=== PATIENT | male | born 1980 ===

== ENCOUNTER 2018-04-08 11:30 | Emergency (ER) | payer OTHER ==
[2018-04-08 11:55] VITALS: BP 131/86; PULSE 77; RESP 16; TEMP 98.4; O2SAT 99
[2018-04-08] MEDS ORDERED: DiphenhydrAMINE 50 mg/ml Inj IM STA (12:21)
--- NOTE | 2018-04-08 12:21 | ED PDOC ---
HPI: Skin/Bite Injury Time Seen by Provider: 04/08/18 12:10 Chief Complaint (Nursing): Abnormal Skin Integrity Chief Complaint (Provider): Rash History Per: Patient, [employer] ([place], #[id number]) History/Exam Limitations: no limitations Onset/Duration Of Symptoms: Days (x5) Current Symptoms Are (Timing): Still Present Additional Complaint(s): 37 year old male presents to the ED for evaluation of an itchy rash onset five days ago. Patient notes that it initially began as a few red spots on his abdomen, but has since spread exclusively to his entire back and abdomen. Denies fever and any recent new exposures. PMD: none provided Past Medical History Reviewed: Historical Data, Nursing Documentation, Vital Signs Vital Signs: Last Vital Signs Temp 98.4 F 04/08/18 11:53 Pulse 77 04/08/18 11:53 Resp 16 04/08/18 11:53 BP 131/86 04/08/18 11:53 Pulse Ox 99 04/08/18 11:53 - Medical History PMH: No Chronic Diseases - Surgical History Surgical History: No Surg Hx - Family History Family History: States: Unknown Family Hx - Home Medications Home Medications: Ambulatory Orders Medication Instructions Recorded Clotrimazole/Betamethasone 2 gm EXT BID #20 gm 04/08/18 [Lotrisone] - Allergies Allergies/Adverse Reactions: Allergies Allergy/AdvReac Type Severity Reaction Status Date / Time No Known Allergies Allergy Verified 04/08/18 11:52 Review of Systems ROS Statement: Except As Marked, All Systems Reviewed And Found Negative Constitutional: Negative for: Fever Skin: Positive for: Rash (itchy red spots to entire trunk) Physical Exam - Reviewed Nursing Documentation Reviewed: Yes Vital Signs Reviewed: Yes - Physical Exam Appears: Positive for: No Acute Distress Skin: Positive for: Warm, Dry, Rash (truncal anterior and posterior rash that is papular and mildly raised) Neck: Positive for: Normal Cardiovascular/Chest: Positive for: Regular Rate, Rhythm Respiratory: Positive for: Normal Breath Sounds. Negative for: Accessory Muscle Use, Crackles, Rales, Stridor, Wheezing, Respiratory Distress Pulses-Carotid (L): 2+ Pulses-Carotid (R): 2+ Pulses-Radial (L): 2+ Pulses-Radial (R): 2+ - ECG O2 Sat by Pulse Oximetry: 99 (RA) Pulse Ox Interpretation: Normal Medical Decision Making Medical Decision Making: Time: 1221 Initial Impression: fungal rash vs dermatitis Initial Plan: --Benadryl 50mg IM --Decadron Inj 10mg IM --Patient will be d/c with a sustain engineer referral and advised to follow up Scribe Attestation: Documented by Santa Whitten, acting as a scribe for Edin Hassan PA-C. Provider Scribe Attestation: All medical record entries made by the Scribe were at my direction and personally dictated by me. I have reviewed the chart and agree that the record accurately reflects my personal performance of the history, physical exam, medical decision making, and the department course for this patient. I have also personally directed, reviewed, and agree with the discharge instructions and disposition. Disposition - Clinical Impression Clinical Impression: Fungal rash of torso - Disposition Referrals: Ollie Guzman MD [Non-Staff] - [facility] [Outside] Disposition: Routine/Home Disposition Time: 12:40 Condition: STABLE Prescriptions: Clotrimazole/Betamethasone [Lotrisone] 2 gm EXT BID #20 gm Instructions: Skin Rash, Skin Rash (DC) Forms: [email or web address] (Syrian), [email or web address] ([place]) Print Language: [email or web address]
[2018-04-08] MEDS ORDERED: DiphenhydrAMINE 50 mg/ml Inj ONE (12:38)
== END 2018-04-08 13:31 | disposition home or self-care (01) ==
LOC: H.ER 11:30
DX: B35.9 Dermatophytosis, unspecified (principal)
CPT/HCPCS: 96372; 99283; J1100; J1200